=== PATIENT | female | born 1960 | race Caucasian/White ===

== ENCOUNTER → 2020-09-19 | Outpatient (CLI) | payer BC | END | disposition home or self-care (01) ==

== ENCOUNTER → 2020-09-19 | Outpatient (CLI) | payer BC | END | disposition home or self-care (01) ==

== ENCOUNTER → 2020-10-03 | Outpatient (CLI) | payer BC ==
--- NOTE | 2020-11-01 10:54 | ECHOF ---
Referral Reason:R01.1 cardiac murmur MEASUREMENTS -------- HEIGHT: 157.5 cm WEIGHT: 90.3 kg BP: 164/70 RVIDd: 2.9 cm (< 3.3) IVSd: 1.1 cm (0.6 - 1.1) LVIDd: 4.1 cm (3.9 - 5.3) LVPWd: 1.0 cm (0.6 - 1.1) IVSs: 1.7 cm LVIDs: 2.7 cm LVPWs: 1.7 cm LA Diam: 3.5 cm (2.7 - 3.8) LAESV Index (A-L): 19.63 ml/m Ao Diam: 2.9 cm (2.0 - 3.7) AV Cusp: 1.9 cm (1.5 - 2.6) MV EXCURSION: 15.488 mm (> 18.000) MV EF SLOPE: 70 mm/s (70 - 150) EPSS: 0.3 cm MV E Nacho: 0.93 m/s MV DecT: 179 ms MV A Nacho: 0.85 m/s MV E/A Ratio: 1.09 FINDINGS -------- Sinus rhythm. This was a technically good study. The left ventricular size is normal. Left ventricular wall thickness is normal. Overall left vent ricular systolic function is normal with, an EF between 60 - 65 %. The right ventricle is normal in size. Normal LA size by volume 22+/-6 ml/m2. The right atrium is normal in size. Interatrial and interventricular septum intact. The aortic valve is trileaflet, and appears structurally normal. No aortic stenosis or regurgitation. There is trace to mild mitral regurgitation. The tricuspid valve appears structurally normal. Unable to estimate RVSP due to inadequate TR jet s pectral doppler profile. Trace/mild (physiologic) pulmonic regurgitation. The aortic root size is normal. Normal inferior vena cava with normal inspiratory collapse consistent with estimated right atrial pre ssure of 5 mmHg. There is no pericardial effusion. CONCLUSIONS -------- 1. The left ventricular size is normal. 2. Left ventricular wall thickness is normal. 3. Overall left ventricular systolic function is normal with, an EF between 60 - 65 %. 4. The aortic valve is trileaflet, and appears structurally normal. No aortic stenosis or regurgitati on. 5. There is trace to mild mitral regurgitation. 6. Trace/mild (physiologic) pulmonic regurgitation. 7. There is no pericardial effusion. SOYFREEZE OPERATOR: Stefania Almanzar RDCS
== END | disposition home or self-care (01) ==
LOC: RADECHMAIN 15:06
PROVIDERS: ATTEND Family Medicine
DX: I34.0 Nonrheumatic mitral (valve) insufficiency (principal); I37.1 Nonrheumatic pulmonary valve insufficiency
CPT/HCPCS: 93306

== ENCOUNTER 2020-11-08 08:28 | Day surgery (SDC) | payer BC ==
[2020-11-07 10:34] VITALS: BMI 35.0
[2020-11-08] MEDS: LACTATED RINGERS 1,000 ML IV SCH ×2 (08:46→08:55)
[2020-11-08 09:03] VITALS: TEMP 98.3
[2020-11-08] MEDS ORDERED: LIDOCAINE 1% (10MG/ML) FOR IV START SQ ONE (09:03)
[2020-11-08] MEDS ORDERED: PROPOFOL 10 MG/ML 20 ML VIAL IV ONE (09:42)
--- NOTE | 2020-11-08 09:56 | P.PCN ---
Date of Procedure: 11/08/20 Procedure(s) Performed: BRIEF HISTORY: Patient is a 59-year-old pleasant female scheduled for an elective colonoscopy as a part of screening for colorectal neoplasia. PROCEDURE PERFORMED: Colonoscopy. PREOPERATIVE DIAGNOSIS: Screening for colon cancer. IV sedation per Anesthesia. PROCEDURE: After informed consent was obtained, the patient, was brought into the endoscopy unit. IV sedation was administered by Anesthesia under continuous monitoring. Digital rectal examination was normal. Initially the Olympus CF-160 flexible video colonoscope was then inserted in the rectum, gradually advanced into the cecum without any difficulty. Careful examination was performed as the scope was gradually being withdrawn. Ileocecal valve and the appendiceal orifice were visualized and appeared normal. Prep was excellent. Mucosa of the cecum, ascending colon, transverse colon, descending colon, sigmoid colon, and rectum appeared normal. Retroflexion was performed in the rectum and small internal hemorrhoids were seen. The patient tolerated the procedure well. IMPRESSION: Normal-appearing colon from rectum to cecum with no evidence of colorectal neoplasia Small internal hemorrhoids. RECOMMENDATIONS: Findings of this examination were discussed with the patient as well as her family. She was advised to have a repeat screening colonoscopy in 10 years.
[2020-11-08 10:12] VITALS: BP 109/65; PULSE 71; RESP 16
== END 2020-11-08 10:20 | disposition home or self-care (01) ==
LOC: ORWHC2ENDO 08:28
PROVIDERS: ATTEND Internal Medicine Gastroenterology
DX: Z12.11 Encounter for screening for malignant neoplasm of colon (principal); K64.8 Other hemorrhoids; Z79.899 Other long term (current) drug therapy
CPT/HCPCS: J2704; G0121

== ENCOUNTER 2021-12-22 16:39 | Emergency (ER) | payer BC ==
[2021-12-22 16:57] VITALS: TEMP 97.8
--- NOTE | 2021-12-22 17:14 | ED ---
Female Urogenital HPI - General Chief complaint: Urogenital Stated complaint: painless hematuria Time Seen by Provider: 12/22/21 16:42 Source: patient, RN notes reviewed Mode of arrival: EMS Limitations: no limitations - History of Present Illness Initial comments: 61-year-old female presents with complaints of hematuria which started approximately 1 week ago. States her urine has cleared up he was later brown in color but also frothy. Denies any abdominal pain. Concern for family history of renal cell carcinoma. No definite family history of kidney stones. No reports of vaginal discharge or bleeding. No other current complaints or modifying factors MD Complaint: other - Related Data Home Medications Medication Instructions Recorded Confirmed Essential One Supplement 1 dose PO DAILY 11/07/20 11/08/20 Eye Supplement 1 dose PO DAILY 11/07/20 11/08/20 Glucosam/Charlie-Msm1/C/Luisito/Bosw 1 each PO DAILY 11/07/20 11/08/20 [Glucosamine-Chondroitin Tablet] Allergies Allergy/AdvReac Type Severity Reaction Status Date / Time Penicillins Allergy avoided Verified 12/22/21 16:56 due to possible alg Review of Systems ROS Statement: Those systems with pertinent positive or pertinent negative responses have been documented in the HPI. ROS Other: All systems not noted in ROS Statement are negative. Past Medical History Additional Past Medical History / Comment(s): "slight" heart murmur History of Any Multi-Drug Resistant Organisms: None Reported Past Surgical History: Adenoidectomy, Ear Surgery, Tonsillectomy Past Anesthesia/Blood Transfusion Reactions: No Reported Reaction Past Psychological History: No Psychological Hx Reported Smoking Status: Never smoker Past Drug Use History: None Reported - Past Family History Mother Family Medical History: Cancer Father Additional Family Medical History / Comment(s): heart problems, macular degeneration General Exam - General Exam Comments Initial Comments: This is a well-developed well-nourished awake alert oriented 4 female Limitations: no limitations General appearance: alert, in no apparent distress Head exam: Present: atraumatic, normocephalic, normal inspection Eye exam: Present: normal appearance, PERRL, EOMI. Absent: scleral icterus, conjunctival injection, periorbital swelling ENT exam: Present: normal exam, mucous membranes moist Neck exam: Present: normal inspection. Absent: tenderness, meningismus, lymphadenopathy Respiratory exam: Present: normal lung sounds bilaterally. Absent: respiratory distress, wheezes, rales, rhonchi, stridor Cardiovascular Exam: Present: regular rate, normal rhythm, normal heart sounds. Absent: systolic murmur, diastolic murmur, rubs, gallop, clicks GI/Abdominal exam: Present: soft, normal bowel sounds. Absent: distended, tenderness, guarding, rebound, rigid Rectal exam: Present: deferred External exam: Present: other (Deferred) Extremities exam: Present: normal inspection, full ROM, normal capillary refill. Absent: tenderness, pedal edema, joint swelling, calf tenderness Back exam: Present: normal inspection Neurological exam: Present: alert, oriented X3, CN II-XII intact Psychiatric exam: Present: normal affect, normal mood Skin exam: Present: warm, dry, intact, normal color. Absent: rash Course Vital Signs 12/22/21 16:48 Temperature 97.8 F Pulse Rate 69 Respiratory 17 Rate Blood Pressure 140/80 O2 Sat by Pulse 97 Oximetry Medical Decision Making - Medical Decision Making Labs and imaging were reviewed. Urine cultures pending CT negative for acute processes except for the finding of a gallstone. Patient will be discharged she does have follow-up with her family physician tomorrow. - Lab Data Result diagrams: 12/22/21 17:01 12/22/21 17:01 Lab Results 12/22/21 12/22/21 12/22/21 Range/Units 17:01 17:01 17:01 WBC 8.7 (3.8-10.6) k/uL RBC 5.00 (3.80-5.40) m/uL Hgb 14.4 (11.4-16.0) gm/dL Hct 42.0 (34.0-46.0) % MCV 83.8 (80.0-100.0) fL MCH 28.8 (25.0-35.0) pg MCHC 34.3 (31.0-37.0) g/dL RDW 13.0 (11.5-15.5) % Plt Count 230 (150-450) k/uL MPV 8.8 Neutrophils % 68 % Lymphocytes % 22 % Monocytes % 5 % Eosinophils % 3 % Basophils % 1 % Neutrophils # 6.0 (1.3-7.7) k/uL Lymphocytes # 1.9 (1.0-4.8) k/uL Monocytes # 0.4 (0-1.0) k/uL Eosinophils # 0.3 (0-0.7) k/uL Basophils # 0.1 (0-0.2) k/uL PT (9.0-12.0) sec INR (<1.2) APTT (22.0-30.0) sec Sodium 141 (137-145) mmol/L Potassium 4.2 (3.5-5.1) mmol/L Chloride 106 (98-107) mmol/L Carbon Dioxide 23 (22-30) mmol/L Anion Gap 12 mmol/L BUN 12 (7-17) mg/dL Creatinine 0.68 (0.52-1.04) mg/dL Est GFR (CKD-EPI)AfAm >90 (>60 ml/min/1.73 sqM) Est GFR (CKD-EPI)NonAf >90 (>60 ml/min/1.73 sqM) Glucose 98 (74-99) mg/dL Calcium 9.4 (8.4-10.2) mg/dL Total Bilirubin 0.5 (0.2-1.3) mg/dL AST 33 (14-36) U/L ALT 28 (4-34) U/L Alkaline Phosphatase 110 (38-126) U/L Total Protein 7.2 (6.3-8.2) g/dL Albumin 4.5 (3.5-5.0) g/dL Urine Color Light Yellow Urine Appearance Cloudy H (Clear) Urine pH 5.0 (5.0-8.0) Ur Specific Dorado 1.011 (1.001-1.035) Urine Protein 1+ H (Negative) Urine Glucose (UA) Negative (Negative) Urine Ketones Negative (Negative) Urine Blood Small H (Negative) Urine Nitrite Negative (Negative) Urine Bilirubin Negative (Negative) Urine Urobilinogen <2.0 (<2.0) mg/dL Ur Leukocyte Esterase Large H (Negative) Urine RBC 21 H (0-5) /hpf Urine WBC 138 H (0-5) /hpf Ur Squamous Epith Cells 5 H (0-4) /hpf Urine Bacteria Rare H (None) /hpf Urine Mucus Rare H (None) /hpf 12/22/21 Range/Units 17:01 WBC (3.8-10.6) k/uL RBC (3.80-5.40) m/uL Hgb (11.4-16.0) gm/dL Hct (34.0-46.0) % MCV (80.0-100.0) fL MCH (25.0-35.0) pg MCHC (31.0-37.0) g/dL RDW (11.5-15.5) % Plt Count (150-450) k/uL MPV Neutrophils % % Lymphocytes % % Monocytes % % Eosinophils % % Basophils % % Neutrophils # (1.3-7.7) k/uL Lymphocytes # (1.0-4.8) k/uL Monocytes # (0-1.0) k/uL Eosinophils # (0-0.7) k/uL Basophils # (0-0.2) k/uL PT 10.6 (9.0-12.0) sec INR 1.0 (<1.2) APTT 26.5 (22.0-30.0) sec Sodium (137-145) mmol/L Potassium (3.5-5.1) mmol/L Chloride (98-107) mmol/L Carbon Dioxide (22-30) mmol/L Anion Gap mmol/L BUN (7-17) mg/dL Creatinine (0.52-1.04) mg/dL Est GFR (CKD-EPI)AfAm (>60 ml/min/1.73 sqM) Est GFR (CKD-EPI)NonAf (>60 ml/min/1.73 sqM) Glucose (74-99) mg/dL Calcium (8.4-10.2) mg/dL Total Bilirubin (0.2-1.3) mg/dL AST (14-36) U/L ALT (4-34) U/L Alkaline Phosphatase (38-126) U/L Total Protein (6.3-8.2) g/dL Albumin (3.5-5.0) g/dL Urine Color Urine Appearance (Clear) Urine pH (5.0-8.0) Ur Specific [place] (1.001-1.035) Urine Protein (Negative) Urine Glucose (UA) (Negative) Urine Ketones (Negative) Urine Blood (Negative) Urine Nitrite (Negative) Urine Bilirubin (Negative) Urine Urobilinogen (<2.0) mg/dL Ur Leukocyte Esterase (Negative) Urine RBC (0-5) /hpf Urine WBC (0-5) /hpf Ur Squamous Epith Cells (0-4) /hpf Urine Bacteria (None) /hpf Urine Mucus (None) /hpf - Radiology Data Radiology results: report reviewed (Image reviewed as well as report evidence of a gallstone with no evidence of other gross abnormality. Please see complete report), image reviewed Disposition Clinical Impression: Hematuria, Cholelithiasis Disposition: HOME SELF-CARE Condition: Good Instructions (If sedation given, give patient instructions): Hematuria (ED), Gallstones (ED) Is patient prescribed a controlled substance at d/c from ED?: No Referrals: Wendi Coker MD [Primary Care Provider] - 1-2 days Decision Date: 12/22/21 Decision Time: 18:27
[2021-12-22 17:17] LABS: Basophils # (A) 0.1 k/uL (0-0.2); Basophils % (A) 1 %; Eosinophils # (A) 0.3 k/uL (0-0.7); Eosinophils % (A) 3 %; HGB 14.4 gm/dL (11.4-16.0); Lymphocytes # (A) 1.9 k/uL (1.0-4.8); Lymphocytes % (A) 22 %; MCH 28.8 pg (25.0-35.0); MCHC 34.3 g/dL (31.0-37.0); MCV 83.8 fL (80.0-100.0); Mean Platelet Volume 8.8; Monocytes # (A) 0.4 k/uL (0-1.0); Monocytes % (A) 5 %; Neutrophils % (A) 68 %; Platelet Count 230 k/uL (150-450); WBC 8.7 k/uL (3.8-10.6)
[2021-12-22 17:24] LABS: Partial Thromboplastin Time 26.5 sec (22.0-30.0); Prothrombin Time 10.6 sec (9.0-12.0)
[2021-12-22 17:26] LABS: Appearance,Urine Cloudy (Clear); Bacteria,Urine Rare /hpf; Bilirubin,Urine Negative (Negative); Blood,Urine Small (Negative); Color,Urine Light Yellow; Glucose,Urine (UA) Negative (Negative); Ketones,Urine Negative (Negative); Leukocyte Esterase,Urine Large (Negative); Mucus,Urine Rare /hpf; Nitrite,Urine Negative (Negative); Protein,Urine 1+ (Negative); RBC,Urine 21 /hpf (0-5); Specific Gravity,Urine 1.011 (1.001-1.035); Squamous Epithelial Cell,Urine 5 /hpf (0-4); Urobilinogen,Urine <2.0 mg/dL (<2.0); WBC,Urine 138 /hpf (0-5)
[2021-12-22 17:28] LABS: ALT 28 U/L (4-34); AST 33 U/L (14-36); African American GFR (CKD) >90 (>60 ml/min/1.73 sqM); Albumin 4.5 g/dL (3.5-5.0); Alkaline Phosphatase 110 U/L (38-126); Anion Gap 12 mmol/L; Blood Urea Nitrogen 12 mg/dL (7-17); Calcium 9.4 mg/dL (8.4-10.2); Carbon Dioxide 23 mmol/L (22-30); Chloride 106 mmol/L (98-107); Glucose 98 mg/dL (74-99); Non-African American GFR(CKD) >90 (>60 ml/min/1.73 sqM); Potassium 4.2 mmol/L (3.5-5.1); Sodium 141 mmol/L (137-145); Total Bilirubin 0.5 mg/dL (0.2-1.3); Total Protein 7.2 g/dL (6.3-8.2)
--- NOTE | 2021-12-22 18:12 | CT ---
EXAMINATION TYPE: CT abdomen pelvis wo/w con DATE OF EXAM: 12/22/2021 COMPARISON: None HISTORY: hematuria CT DLP: 2064.7 mGycm Automated exposure control for dose reduction was used. CONTRAST: Performed without and with IV Contrast, patient injected with 100 mL of Isovue 300. Images obtained from the diaphragm to the floor the pelvis with the IV contrast and without. The lung bases are clear. No pleural effusion. Kidneys have normal size with no evidence of renal kellie culus. Liver spleen and stomach pancreas appear intact. There is apparent 2 cm calcified gallstone. The bile ducts are not dilated. There is no adrenal mass. Kidneys show satisfactory contrast opacification. No hydronephrosis. Ureter s are not dilated. Appendix is posterior and appears normal. The bladder distends smoothly. No inguin al hernia. No free fluid in the pelvis. Delayed images show normal renal excretion. Uterus is retroverted. No pelvic mass. There is no mesenteric edema. No ascites or free air. No sign of a bowel obstruction. The lumbar vert ebrae have normal alignment. No compression fracture. There is degenerative mild spurring in the lumb ar spine. The bony pelvis is intact. The hip joints are intact. IMPRESSION: There is cholelithiasis. No dilated ducts. No renal stone or obstruction. No evidence of renal mass. Normal appendix.
[2021-12-22 19:17] VITALS: BP 152/79; PULSE 60; RESP 16
== END 2021-12-22 19:17 | disposition home or self-care (01) ==
LOC: EC 16:39
DX: K80.20 Calculus of gallbladder without cholecystitis without obstruction (principal); Z88.0 Allergy status to penicillin
CPT/HCPCS: 99284; 36415; 80053; 85025; 85610; 85730; 81001; 87086; 74178; Q9967; 87077; 87186

== ENCOUNTER → 2021-12-30 | Outpatient (CLI) | payer BC ==
--- NOTE | 2021-12-31 11:35 | US ---
EXAMINATION TYPE: US kidneys/renal and bladder DATE OF EXAM: 12/30/2021 COMPARISON: NONE CLINICAL HISTORY: R31.0 Gross hematuria. 1 day of gross hematuria a few weeks ago, no symptoms or iss ues now EXAM MEASUREMENTS: Right Kidney: 9.3 x 4.0 x 4.0 cm Left Kidney: 8.8 x 4.8 x 5.0 cm Right Kidney: No hydronephrosis or masses seen Left Kidney: No hydronephrosis or masses seen Bladder: wnl Bilateral Jets seen: Yes There is no evidence for hydronephrosis at this point in time. No nephrolithiasis is seen. No kavitha s are identified. The urinary bladder is anechoic. Bilateral ureteral jets are seen. IMPRESSION: No evidence of obstructive uropathy or ultrasound evidence of mass.
== END | disposition home or self-care (01) ==
LOC: RADUSWWP 16:13
PROVIDERS: ATTEND Family Medicine
DX: R31.0 Gross hematuria (principal)
CPT/HCPCS: 76770

== ENCOUNTER → 2022-03-06 | Outpatient (CLI) | payer BC ==
--- NOTE | 2022-03-07 07:25 | MM ---
Reason for Exam: Screening (asymptomatic). Last mammogram was performed 1 year(s) and 5 month(s) ago. Patient History: Menarche at age 13. Patient has no children. Postmenopausal. 2000, Excisional Biopsy on the Left side. Maternal grandmother had breast cancer. Maternal aunt had breast cancer. Mother had breast cancer. Risk Values: Carmen 5 year model risk: 3.2%. NCI Lifetime model risk: 14.1%. Prior Study Comparison: 10/18/2014 Screening Mammogram, [facility]. 12/27/2015 Screening Mammogram, [facility]. 09/19/2020 Bilateral Screening Mammogram, [facility]. Tissue Density: The breast tissue is extremely dense which could obscure a lesion on mammography. Findings: Analyzed By CAD. There is oval 1.4 cm circumscribed mass in the middle depth left breast upper aspect with focal dystrophic calcification and biopsy clip redemonstrated. Stable oval circumscribed 7 mm mass in the upper aspect left breast There is no suspicious new group of microcalcifications or new suspicious or enlarging mass in either breast. Overall Assessment: Benign, BI-RAD 2 Management: Screening Mammogram of both breasts in 1 year. Some advise bilateral breast ultrasound surveillance in patients with background dense tissue. A clinical breast exam by your physician is recommended on an annual basis and results should be correlated with mammographic findings. Electronically signed and approved by: Tay De La Fuente M.D.
== END | disposition home or self-care (01) ==
LOC: RADMAMWWP 14:13
PROVIDERS: ATTEND Family Medicine
DX: Z12.31 Encounter for screening mammogram for malignant neoplasm of breast (principal)
CPT/HCPCS: 77063; 77067

== ENCOUNTER → 2022-06-19 | Outpatient (CLI) | payer BC ==
--- NOTE | 2022-06-19 11:31 | US ---
EXAMINATION TYPE: US transvaginal DATE OF EXAM: 06/19/2022 COMPARISON: 01/16/2022 CLINICAL HISTORY: 61-year-old female R31.0 GROSS HEMATURIA. Prior hematuria, 6 month follow up to end ometrial thickening. TECHNIQUE: Transvaginal sonographic images were attempted per order, but unsuccessful. Translabial i mages were obtained: Date of LMP: Postmenopausal FINDINGS: EXAM MEASUREMENTS: Uterus: 5.5 x 2.2 x 2.4 cm Endometrial Stripe: 0.86 cm 1. Uterus: Non- size wnl 2. Endometrium: Mildly thickened with possible hyperechoic mass or polyp 0.6 x 0.3 x 0.7cm 3. Right Ovary: Obscured by overlying bowel gas 4. Left Ovary: Obscured by overlying bowel gas 5. Bilateral Adnexa: wnl 6. Posterior cul-de-sac: wnl IMPRESSION: 1. Translabial imaging again showing mild endometrial thickening now up to 9 mm versus 7-8 mm, previo usly. Given the current appearance, unable to exclude a small endometrial lesion such as a 7 mm polyp . Recommend either ongoing ultrasound follow-up or further [employer] evaluation. 2. Unable to visualize either ovary due to bowel gas.
== END | disposition home or self-care (01) ==
LOC: RADUSWWP 09:04
PROVIDERS: ATTEND Family Medicine
DX: N85.8 Other specified noninflammatory disorders of uterus (principal); R31.0 Gross hematuria; N95.0 Postmenopausal bleeding
CPT/HCPCS: 76830

== ENCOUNTER → 2023-05-04 | Outpatient (CLI) | payer BC, OTHER ==
--- NOTE | 2023-05-04 17:41 | BD ---
EXAMINATION TYPE: Axial Bone Density DATE OF EXAM: 05/04/2023 CLINICAL HISTORY: 62 years old Female. ICD-10 CODE: M85.9 DISORDER OF BONE Height: 61.5 in Weight: 208 lbs EXAM MEASUREMENTS: Bone mineral densitometry was performed using the [employer] System. Bone mineral density as measured about the Lumbar spine is: ----- L1-L4(G/cm2): 1.1110 T Score Values are as follows: ----- L1: -0.7 ----- L2: -1.3 ----- L3: 0.2 ----- L4: -0.6 ----- L1-L4: -0.6 Z Score Values are as follows: ----- L1: -0.3 ----- L2: -0.8 ----- L3: 0.7 ----- L4: -0.2 ----- L1-L4: -0.1 Bone mineral density has: Increased 1.2% since study of: 09/19/2020 Bone mineral density about the R hip (g/cm2): 0.916 Bone mineral density about the L hip (g/cm2): 0.981 T Score values are as follows: -----R Neck: -1.3 -----L Neck: -1.4 -----R Total: -0.7 -----L Total: -0.2 Z Score values are as follows: -----R Neck: -0.5 -----L Neck: -0.7 -----R Total: -0.3 -----L Total: -0.2 Bone mineral density has: Increased 0.9% since study of: 09/19/2020 FRAX%s: The graph provided illustrates a 7.6% chance for a major osteoporotic fx and a 0.7% chance fo r the hips probability for fx in 10 years time. IMPRESSION: Osteopenia (T Score between -2.5 and -1). There is slightly increased risk of fracture and the patient may be considered for treatment. Re-Screen 2-5 years. NOTE: T-SCORE=SD OF THE YOUNG ADULT MEAN.
--- NOTE | 2023-05-05 09:25 | MM ---
Reason for Exam: Screening (asymptomatic). Last mammogram was performed 1 year(s) and 2 month(s) ago. Patient History: Menarche at age 13. Patient has no children. Postmenopausal. 1999, Excisional Biopsy on the Left side. Maternal grandmother had breast cancer. Maternal aunt had breast cancer. Mother had breast cancer, age 65. Risk Values: Carmen 5 year model risk: 3.3%. NCI Lifetime model risk: 13.7%. Prior Study Comparison: 12/27/2015 Screening Mammogram, [facility]. 09/19/2020 Bilateral Screening Mammogram, [facility]. 03/06/2022 Bilateral MG 3D screening mammo w/cad, [facility]. Tissue Density: The breast tissue is heterogeneously dense. This may lower the sensitivity of mammography. Findings: Analyzed By CAD. There is no suspicious group of microcalcifications or new suspicious mass in either breast. Chronic nodularity left breast with the previous biopsy clip. Stable asymmetric density right breast. Overall Assessment: Benign, BI-RAD 2 Management: Screening Mammogram of both breasts in 1 year. . Patient should continue monthly self-breast exams. A clinical breast exam by your physician is recommended on an annual basis. This exam should not preclude additional follow-up of suspicious palpable abnormalities. Note on Carmen scores and lifetime risk: 1. A Carmen score greater than 3% is considered moderate risk. If this is the case, consider specialist referral to assess eligibility for a risk reducing agent. 2. If overall lifetime risk for the development of breast cancer is 20% or higher, the patient may qualify for future screening with alternating mammogram and breast MRI. Electronically signed and approved by: Giorgi Maldonado M.D. Radiologis
== END | disposition home or self-care (01) ==
LOC: RADMAMWWP 14:06
PROVIDERS: ATTEND Family Medicine
DX: Z12.31 Encounter for screening mammogram for malignant neoplasm of breast (principal); M85.89 Other specified disorders of bone density and structure, multiple sites; Z80.3 Family history of malignant neoplasm of breast; Z78.0 Asymptomatic menopausal state
CPT/HCPCS: 77063; 77067; 77080